=== PATIENT | female | born 1960 | race Caucasian/White ===

== ENCOUNTER → 2020-11-03 | Outpatient (CLI) | payer OTHER | LOC: ECHO 08:52 → NM 10:00 | DX: R06.02 Shortness of breath (principal); I25.10 Atherosclerotic heart disease of native coronary artery without angina pectoris; R07.9 Chest pain, unspecified | CPT/HCPCS: ECHO; 78452; 93017; 93306; A9502; J2785 ==

== ENCOUNTER → 2021-06-13 | Outpatient (CLI) | payer OTHER ==
[~2021-06-13] MED LIST: EFFEXOR XR75 MG PO; ESTRADIOL1 EAC4 TD; GLUCOPHAGE 500500 MG PO; ISOSORBIDE MONO30 MG PO; MEDROL TAB 4 MG4 MG PO; OZEMPIC1 MG/0.71 SQ; PERCOCET 10-321 EACH PO; PLAVIX75 MG PO; RITALIN20 MG PO; SYMBICORT 160-1 INHA INH; TOPAMAX 100 MG100 MG PO; VITAMIN B-121000 MC3 INJ; VITAMIN C1000 MG PO; WELLBUTRIN SR150 M1 PO; XANAX0.5 MG PO
== END ==
LOC: CATH 08:59
DX: I25.118 Atherosclerotic heart disease of native coronary artery with other forms of angina pectoris (principal); E11.9 Type 2 diabetes mellitus without complications; I10 Essential (primary) hypertension; E78.5 Hyperlipidemia, unspecified; J44.9 Chronic obstructive pulmonary disease, unspecified; L93.0 Discoid lupus erythematosus; E66.9 Obesity, unspecified; Z88.5 Allergy status to narcotic agent; Z88.0 Allergy status to penicillin; Z87.891 Personal history of nicotine dependence; Z88.6 Allergy status to analgesic agent; Z88.8 Allergy status to other drugs, medicaments and biological substances; Z88.2 Allergy status to sulfonamides; Z68.27 Body mass index [BMI] 27.0-27.9, adult
CPT/HCPCS: 82962; 99152; 99153; C1769; C1894; J1644; J2250; J3010; J7030; Q9967

== ENCOUNTER → 2021-07-21 | Outpatient (CLI) | payer OTHER | LOC: EXRD 12:49 | DX: M79.605 Pain in left leg (principal) | CPT/HCPCS: 93926; 93971 ==